=== PATIENT | male | born 1960 | race Caucasian/White ===

== ENCOUNTER 2025-08-18 17:54 | Emergency (ER) | payer BC, SELFPAY ==
[2025-08-18 17:55] VITALS: BP 177/103
--- NOTE | 2025-08-18 19:04 | ED.GENMED ---
History of Present Illness
General
Chief Complaint: Skin Surface Trauma
Time Seen by Provider: 08/18/25 18:01
History of Present Illness
History of Present Illness:
see MDM
Past History
Past History
ED Past Medical History: None
ED Past Surgical History: Appendectomy and Other (Hernia repair)
Social History
Tobacco: Non-smoker
Alcohol: Occasional
Personal:
Living: with family
Employment: Employed
Phy Exam
Physical Exam
Physical Exam:
see MDM
Course
Orders/Labs/Results
Orders:
Orders
08/18/25 18:08
Tetanus/Diphth/Acelpertussis [Adacel] 0.5 ml IM .ONCE ONE
CR Hand - Right Min 3 Views Urgent
Comment:
Reason For Exam: right hand fb
08/18/25 18:59
Cephalexin Monohydrate [Keflex] 500 mg PO NOW STA
Vital Signs
Initial and Last Documented VS:
Initial Vital Signs
Temp Pulse Resp BP Pulse Ox
36.6 C 88 20 177/103 98
08/18/25 17:55 08/18/25 17:55 08/18/25 17:55 08/18/25 17:55 08/18/25 17:55
Last Documented Vital Signs
Temp Pulse Resp BP Pulse Ox
36.6 C 88 20 177/103 98
08/18/25 17:55 08/18/25 17:55 08/18/25 17:55 08/18/25 17:55 08/18/25 17:55
Procedures
Foreign Body Removal-Skin
Wound explored and foreign body removed?: Yes
Anesthesia: local and 1% lidocaine
Foreign body removed using: irrigation, forceps and incision
Foreign body removed: completely
MDM/Problems Addressed
Differential Diagnosis Includes:
see MDM
MDM/Problems Addressed:
Note:
CHIEF COMPLAINT(S)
Puncture wound to the hand from a plywood splinter.
HISTORY OF PRESENT ILLNESS
The patient is a 64-year-old male who presented with a puncture wound to the hand caused by a piece of plywood while performing a home improvement project. The incident occurred as he was building a kitchen countertop and inadvertently drove the
counter along the edge of a plywood piece. The patient reports tenderness at the site and concerns about a foreign body, noting, 'theres something in there...it went straight in rather than along the skin.' The patient attempted to squeeze the area
without successfully removing any material. He is right-handed and noted no issues with movement of the hand. However, the area is tender to touch.
PAST MEDICAL AND SURIGICAL HISTORY
Patient uncertain of last tetanus immunization, possibly during teenage years.
PHYSICAL EXAM
GENERAL: Alert , in no apparent distress, comfortable at rest
HEAD: NCAT
CV: 2+ radial pulse
cap refill intact
NEUROLOGICAL: Alert and oriented, no focal neuro deficits, , 5/5 strength, sensation intact, ambulation slight limp right leg
SKIN: Warm and dry,
small puncture 2 mm R hand thenar eminence with soft tissue with tendenress;
MUSCULOSKELETAL:R hand pain with thumb movement but full ROM normal sensation and strength
PSYCH: Normal and appropriate interaction.
Nursing notes reviewed and vital signs reviewed.
PLAN
1. Administer a tetanus booster due to puncture wound and indeterminate immunization status.
2. Conduct imaging, possibly an ultrasound, to visualize the depth and presence of any foreign body within the wound.
DIFFERENTIAL DIAGNOSIS
The Differential Diagnosis includes, in no particular order and is not limited to:
1. Foreign body in soft tissue
2. Cellulitis
3. Abscess formation
4. Soft tissue infection
5. Traumatic hand injury
6. Puncture wound
7. Localized tetanus infection
8. Osteomyelitis (if foreign object deeply embedded)
9. Tendon injury
10. Neurovascular compromise
64-year-old male with a suspicion of a wooden foreign body retained under the skin after getting punctured with a piece of plywood today. Patient had pain and tenderness along the thenar eminence with a puncture wound. He has full range of motion
of the thumb. No numbness tingling or weakness. Tetanus was given here. X-ray did not reveal a soft tissue foreign body but ultrasound bedside by me did. I was able to anesthetize the skin, use of the 11 blade to just open the incision slightly
and use forceps to pull the piece of wood out was approximately 2 cm
Irrigated, Keflex, return precautions
*Pulse Oximetry
SaO2: 98
Oxygen Mode of Delivery: Room air
Patient hypoxic: no (98)
*Critical Care Note
Total Time (30-74mins, 75-104mins- exclusive of procedures): Not Applicable
ED Attending Note
-
Portions of this chart may have been created with voice recognition software.� Occasional wrong word or��sound alike� substitutions may have occurred due to the inherent limitations of voice recognition software.
Discharge Plan
Departure
Patient Disposition: Home (Routine Discharge)
Date of Disposition: 08/18/25
Time of Disposition: 19:00
Patient with high blood pressure during this ER visit?: Yes
Condition: Fair
Covid-19: Not Applicable
Discharge Problem:
Foreign body hand
Instructions: Wound Care (DC), BLOOD PRESSURE
Prescriptions:
New
cephalexin 500 mg capsule
500 mg PO Q8H 7 Days Qty: 21 0RF
Referrals:
Jonathan Solorzano MD [Family Provider, Family Practice] - Follow up in 2-3 days
Activity Restrictions/Additional Instructions:
take keflex 3 times a day for7 days to prevent infection
twice a day clean with soap and water
motrin for pain every8 hours as needed
watch for redmness, swelling, drainage, fever, pain and return as needed
otherwise see your doctor in 2 days for wound check
Interventions
Interventions:
*Risk Screen - Suicide Last Done: 08/18/25 17:55
*General Assessment Last Done: 08/18/25 17:55
*Neglect/Abuse Screening Last Done: 08/18/25 17:55
*ED COVID-19 Vaccine History Last Done: 08/18/25 17:55
*ED Influenza Vaccine History Last Done: 08/18/25 17:55
Discharge Date and Time
Print Language: MAORI
[2025-08-18] MEDS: KEFLEX 500 MG PO (19:09)
[2025-08-18] MEDS: ADACEL 0.5 ML IM (19:09)
== END 2025-08-18 19:53 | disposition home or self-care (01) ==
LOC: EMR 17:54
PROVIDERS: EMERGENCY PHYSICIAN Emergency Medicine; FAMILY PHYSICIAN Family Medicine
DX: S61.441A Puncture wound with foreign body of right hand, initial encounter (principal); W45.8XXA Other foreign body or object entering through skin, initial encounter; Z23 Encounter for immunization
CPT/HCPCS: 10120; 90471; 99283; 73130; 90715